=== PATIENT | female | born 1985 | race Caucasian/White ===

== ENCOUNTER 2023-09-24 15:54 | Emergency (ER) | payer SELFPAY ==
[~2023-09-24] VITALS: Ht 165.1 cm; Wt 65.0 kg
[2023-09-24 15:58] VITALS: BP 145/93; PULSE 101; RESP 16; TEMP 98.1; O2SAT 99
== END 2023-09-24 16:21 ==
LOC: ER 15:54
DX: F10.129 Alcohol abuse with intoxication, unspecified (principal); Y90.9 Presence of alcohol in blood, level not specified
CPT/HCPCS: 82962; 99283